=== PATIENT | female | born 1985 | race Caucasian/White ===

== ENCOUNTER 2018-07-20 11:45 | Inpatient (IN) | payer OTHER ==
[~2018-07-20] VITALS: Ht 152.4 cm; Wt 2.7 kg
[2018-08-02] MEDS ORDERED: PRENATAL VITAM1 EAC4 PO (09:41)
== END 2018-08-05 13:31 | DRG 788 ==
LOC: LDR 08-02 06:31 → OB/GYN 08-02 06:31 → LDR 08-02 10:13 → OB/GYN 08-02 22:20 → LDR 08-03 11:45 → OB/GYN 08-05 13:31
PROVIDERS: ADMIT Specialist
PROC: 4A1HXCZ Monitoring of Products of Conception, Cardiac Rate, External Approach (ICD-10-PCS; 2018-08-02)
PROC: 3E033VJ Introduction of Other Hormone into Peripheral Vein, Percutaneous Approach (ICD-10-PCS; 2018-08-02)
PROC: 10D00Z1 Extraction of Products of Conception, Low, Open Approach (ICD-10-PCS; principal; 2018-08-02 21:00)
DX: O61.0 Failed medical induction of labor (principal); O33.8 Maternal care for disproportion of other origin; Z3A.40 40 weeks gestation of pregnancy; Z37.0 Single live birth

== ENCOUNTER 2023-05-09 09:04 | Emergency (ER) | payer OTHER ==
[~2023-05-09] VITALS: Ht 152.4 cm; Wt 83.0 kg
[~2023-05-09 09:04] MED LIST: PRENATAL VITAM1 EAC4 PO
[2023-05-09] MEDS ORDERED: RINGERS SOLUTION,LACTATED 1,000 ML IV STA (09:52)
[2023-05-09 10:30] LABS: HEMATOCRIT 42.2 % (36.0-45.00); HEMOGLOBIN 14.3 g/dL (12.0-15.00); MEAN CORPUSCULAR HEMOGLOBIN 30.6 pg (27.00-32.0); PLATELET COUNT 219 K/uL (150-450); RED BLOOD COUNT 4.69 M/uL (4.00-6.00); RED CELL DISTRIBUTION WIDTH 13.4 % (11.5-14.5)
[2023-05-09 10:41] LABS: URINE APPEARANCE Clear; URINE BACTERIA 16.3 uL (0.0-1933); URINE BILIRRUBIN Negative (NEGATIVE); URINE BLOOD Trace; URINE COLOR Yellow; URINE EPITHELIAL CELLS 3.5 uL (0.0-38.8); URINE GLUCOSE Negative (NEGATIVE); URINE LEUKOCYTE Negative; URINE NITRATE Negative; URINE PROTEIN Negative (NEGATIVE); URINE RBC 6.7 uL (0.0-20.8); URINE UROBILINOGEN 0.2 E.U./dl; URINE WBC 2.4 uL (0.0-23.2)
[2023-05-09 11:37] LABS: INR 1.04; PARTIAL THROMBOPLASTIN TIME 28.2 SECONDS (22.0-34.0); PROTHROMBIN TIME 10.9 SECONDS (9.0-11.5)
[2023-05-09 12:31] LABS: BILIRUBIN TOTAL 0.62 mg/dL (0.3-1.2); CALCIUM 9.1 mg/dL (8.5-10.1); CREATININE SERUM 0.59 mg/dL (0.55-1.02); GFR 113.47; GLOBULINA 2.9 G/DL (2.4-3.5); POTASSIUM 3.85 mEq/L (3.5-5.1); TOTAL PROTEIN 6.9 gm/dL (6.4-8.2)
== END 2023-05-09 12:50 ==
LOC: ER 09:05
PROVIDERS: General Practice
DX: O02.1 Missed abortion (principal); Z91.018 Allergy to other foods